=== PATIENT | female | born 1975 | race Caucasian/White ===

== ENCOUNTER 2021-04-29 15:29 | Outpatient (CLI) | payer OTHER | END 2021-04-29 15:30 | disposition home or self-care (01) | LOC: CSHCT 15:29 | PROVIDERS: ATTEND Urology | DX: N13.30 Unspecified hydronephrosis (principal); R31.0 Gross hematuria; I71.03 Dissection of thoracoabdominal aorta | CPT/HCPCS: 74178 ==

== ENCOUNTER 2021-08-15 14:49 | Outpatient (CLI) | payer OTHER | END 2021-08-15 14:50 | disposition home or self-care (01) | LOC: CSHULT 14:49 | PROVIDERS: ATTEND Urology | DX: R31.0 Gross hematuria (principal); N28.89 Other specified disorders of kidney and ureter | CPT/HCPCS: 76770 ==

== ENCOUNTER 2022-02-10 08:24 | Outpatient (CLI) | payer OTHER | END 2022-02-10 08:25 | disposition home or self-care (01) | LOC: CSHMAMMO 08:24 | PROVIDERS: ATTEND Family Medicine | DX: Z12.31 Encounter for screening mammogram for malignant neoplasm of breast (principal); N64.89 Other specified disorders of breast | CPT/HCPCS: 77063; 77067 ==